=== PATIENT | male | born 1970 | race Caucasian/White ===

== ENCOUNTER 2023-09-18 07:45 | Observation (INO) | payer MEDICARE, OTHER ==
--- NOTE | 2023-09-18 08:20 | ED ---
Chest Pain HPI - General Chief Complaint: Chest Pain Stated Complaint: Chest pain Time Seen by Provider: 09/18/23 07:55 Source: patient, EMS Mode of arrival: EMS - History of Present Illness Initial Comments: 53-year-old male with past medical history of quadruple bypass with stent placement after who presents to the emergency department reporting chest pain. He is at [place]. Chest pain started around 1 AM. Describes it as a pressure sensation in his substernal region which radiates down his right arm. No associated shortness of breath. States the pain was worse when he walked, especially down a flight of stairs. He went to the medical office where they gave him a nitro and aspirin and transferred him here. Patient follows with Dr. Chappell out of [facility]. States his last stent was 3 years ago. Bypass was in 2014. Patient has active and out of 10 chest pain. - Related Data Home Medications Medication Instructions Recorded Confirmed Acetaminophen [Tylenol] 650 mg PO Q4H PRN MDD 2,600 mg 09/18/23 09/18/23 Benzocaine 20 % Gel [Orajel] 1 applic MM QID PRN 09/18/23 09/18/23 Calcium, Magnesium, Zinc, With 1 tab PO TID PRN 09/18/23 09/18/23 Vitamin D3 Chlorpheniramine Maleate 4 mg PO Q4H PRN 09/18/23 09/18/23 [Chlor-Trimeton] Clopidogrel [Plavix] 75 mg PO DAILY 09/18/23 09/18/23 Ezetimibe [Zetia] 10 mg PO DAILY 09/18/23 09/18/23 FLUoxetine HCL [PROzac] 20 mg PO DAILY 09/18/23 09/18/23 Isosorbide Mononitrate ER [Imdur] 30 mg PO DAILY 09/18/23 09/18/23 Lidocaine Viscous 2% [Xylocaine 1 applic MUCOUS MEM DIRECTED PRN 09/18/23 09/18/23 Viscous] Loperamide HCl [Imodium A-D] 4 mg PO QID PRN MDD 16 MG 09/18/23 09/18/23 Melatonin 10 mg PO HS 09/18/23 09/18/23 Metoprolol Succinate (ER) [Toprol 100 mg PO DAILY 09/18/23 09/18/23 XL] Multivitamins, Thera [Multivitamin 1 tab PO DAILY 09/18/23 09/18/23 (formulary)] Mylanta Regular Strength 30 ml PO Q4H PRN 09/18/23 09/18/23 Nitroglycerin Sl Tabs [Nitrostat] 0.4 mg SUBLINGUAL Q5M PRN 09/18/23 09/18/23 Ranolazine [Ranolazine ER] 500 mg PO Q12HR 09/18/23 09/18/23 Rosuvastatin Calcium [Crestor] 40 mg PO HS 09/18/23 09/18/23 Thiamine [Vitamin B-1] 100 mg PO DAILY 09/18/23 09/18/23 lisinopriL 40 mg PO DAILY 09/18/23 09/18/23 ondansetron HCL [Zofran] 8 mg PO Q6H PRN 09/18/23 09/18/23 traZODone HCL [Desyrel] 50 - 150 mg PO HS PRN 09/18/23 09/18/23 Allergies Allergy/AdvReac Type Severity Reaction Status Date / Time No Known Allergies Allergy Verified 09/18/23 10:56 Review of Systems ROS Statement: Those systems with pertinent positive or pertinent negative responses have been documented in the HPI. ROS Other: All systems not noted in ROS Statement are negative. Past Medical History Past Medical History: Chest Pain / Angina History of Any Multi-Drug Resistant Organisms: None Reported Past Surgical History: Coronary Bypass/CABG, Heart Catheterization With Stent Past Psychological History: Bipolar Smoking Status: Current every day smoker Past Alcohol Use History: Abuse Past Drug Use History: None Reported General Exam General appearance: alert, in no apparent distress Head exam: Present: atraumatic, normocephalic, normal inspection Eye exam: Present: normal appearance, PERRL, EOMI. Absent: scleral icterus, conjunctival injection, periorbital swelling ENT exam: Present: normal exam, mucous membranes moist Neck exam: Present: normal inspection. Absent: tenderness, meningismus, lymphadenopathy Respiratory exam: Present: normal lung sounds bilaterally. Absent: respiratory distress, wheezes, rales, rhonchi, stridor Cardiovascular Exam: Present: regular rate, normal rhythm, normal heart sounds. Absent: systolic murmur, diastolic murmur, rubs, gallop, clicks GI/Abdominal exam: Present: soft, normal bowel sounds. Absent: distended, tenderness, guarding, rebound, rigid Extremities exam: Present: normal inspection, full ROM, normal capillary refill. Absent: tenderness, pedal edema, joint swelling, calf tenderness Back exam: Present: normal inspection Neurological exam: Present: alert, oriented X3, CN II-XII intact Psychiatric exam: Present: normal affect, normal mood Skin exam: Present: warm, dry, intact, normal color. Absent: rash Course Vital Signs 09/18/23 09/18/23 09/18/23 07:56 08:00 08:36 Temperature Pulse Rate 61 59 L Pulse Rate [ 60 Supine] Respiratory 16 14 Rate Blood Pressure 126/88 132/82 Blood Pressure [Supine] O2 Sat by Pulse 100 100 Oximetry 09/18/23 09/18/23 09/18/23 09:08 09:35 13:00 Temperature 97.7 F Pulse Rate 54 L 50 L 51 L Pulse Rate [ Supine] Respiratory 16 16 16 Rate Blood Pressure 117/76 124/78 116/70 Blood Pressure [Supine] O2 Sat by Pulse 99 100 100 Oximetry 09/18/23 09/18/23 09/18/23 17:49 19:35 22:30 Temperature 98 F 97.7 F Pulse Rate 57 L 53 L Pulse Rate [ 56 L Supine] Respiratory 16 18 12 Rate Blood Pressure 119/79 110/71 Blood Pressure 105/60 [Supine] O2 Sat by Pulse 100 98 97 Oximetry 09/19/23 09/19/23 09/19/23 00:30 02:07 05:31 Temperature 97.6 F Pulse Rate 53 L 49 L 51 L Pulse Rate [ Supine] Respiratory 16 17 15 Rate Blood Pressure 106/76 111/77 111/76 Blood Pressure [Supine] O2 Sat by Pulse 98 96 96 Oximetry 09/19/23 09/19/23 09/19/23 07:00 13:00 13:17 Temperature 98.0 F Pulse Rate 62 Pulse Rate [ 58 L 78 Supine] Respiratory 16 18 Rate Blood Pressure 132/77 Blood Pressure 118/83 [Supine] O2 Sat by Pulse 97 98 Oximetry Chest Pain MDM - MDM Was pt. sent in by a medical professional or institution (, PA, DIGITAL CARTOGRAPHIC TECHNICIAN, urgent care, hospital, or longterm...) When possible be specific @ -Patient was sent in from [place] Did you speak to anyone other than the patient for history (EMS, parent, family, police, friend...)? What history was obtained from this source @ -Spoke with EMS for history Did you review nursing and triage notes (agree or disagree)? Why? @ -I reviewed and agree with nursing and triage notes Were old charts reviewed (outside hosp., previous admission, EMS record, old EKG, old radiological studies, urgent care reports/EKG's, longterm records)? Report findings @ -Reviewed paperwork from [place] Differential Diagnosis (chest pain, altered mental status, abdominal pain women, abdominal pain men, vaginal bleeding, weakness, fever, dyspnea, syncope, headache, dizziness, GI bleed, back pain, seizure, CVA, palpatations, mental health, musculoskeletal)? @ -Differential Chest Pain: Stable Angina, Unstable Angina, STEMI, NSTEMI Aortic Dissection, Pneumothorax, Musculoskeletal, Esophageal Spasm GERD, Cholecystitis, Pancreatitis, Zoster, this is not meant to be an all-inclusive list. EKG interpreted by me (3pts min.). @ -Yes and demonstrates sinus rhythm heart rate 61. NV interval 137. QRS 94. QTc of 412. No acute ST segment elevation depressions X-rays interpreted by me (1pt min.). @ -Yes and demonstrates no acute process CT interpreted by me (1pt min.). @ -None done U/S interpreted by me (1pt. min.). @ -None done What testing was considered but not performed or refused? (CT, X-rays, U/S, labs)? Why? @ -None What meds were considered but not given or refused? Why? @ -None Did you discuss the management of the patient with other professionals (professionals i.e. , PA, DIGITAL CARTOGRAPHIC TECHNICIAN, lab, RT, psych nurse, social service technician, cloth printer, teacher, media liaison officer, shelter case manager)? Give summary @ -Spoke with Dr. Benavidez and Angeli for admission Was smoking cessation discussed for >3mins.? @ -No Was critical care preformed (if so, how long)? @ -No Were there social determinants of health that impacted care today? How? (Homelessness, low income, unemployed, alcoholism, drug addiction, transportation, low edu. Level, literacy, decrease access to med. care, prison, rehab)? @ -Patient is in rehab at this time Was there de-escalation of care discussed even if they declined (Discuss DNR or withdrawal of care, Hospice)? DNR status @ -No What co-morbidities impacted this encounter? (DM, HTN, Smoking, COPD, CAD, Cancer, CVA, ARF, Chemo, Hep., AIDS, mental health diagnosis, sleep apnea, morbid obesity)? @ -Coronary disease status post CABG Was patient admitted / discharged? Hospital course, mention meds given and route, prescriptions, significant lab abnormalities, going to OR and other pertinent info. @ -Upon arrival patient was seen and evaluated in room 11. Thorough history and physical exam was performed. Patient placed on continuous pulse ox and cardiac monitoring. Twelve-lead EKG is obtained. Laboratory studies are conducted. Chest x-ray was performed. Results are discussed with patient. Due to his advanced cardiac history I did recommend admission for cardiology consultation. Patient was agreeable admitted to the hospital in stable condition Undiagnosed new problem with uncertain prognosis? @ -No Drug Therapy requiring intensive monitoring for toxicity (Heparin, Nitro, Insulin, Cardizem)? @ -No Were any procedures done? @ -No Diagnosis/symptom? @ -Acute chest pain, history of coronary artery disease Acute, or Chronic, or Acute on Chronic? @ -Acute Uncomplicated (without systemic symptoms) or Complicated (systemic symptoms)? @ -Complicated Side effects of treatment? @ -No Exacerbation, Progression, or Severe Exacerbation? @ -No Poses a threat to life or bodily function? How? (Chest pain, [place], [place], pneumonia, PE, COPD, DKA, ARF, appy, cholecystitis, CVA, Diverticulitis, Homicidal, Suicidal, threat to staff... and all critical care pts) @ -Yes this patient presents with chest pain Disposition Clinical Impression: Chest pain Disposition: ADMITTED IP TO THIS HOSP Condition: Stable Is patient prescribed a controlled substance at d/c from ED?: No Time of Disposition: 10:40 Decision to Admit Reason: Admit from EC Decision Date: 09/18/23 Decision Time: 10:40
[2023-09-18 08:30] LABS: Basophils % (A) 1 %; Eosinophils # (A) 0.1 k/uL (0-0.7); Eosinophils % (A) 1 %; HGB 13.4 gm/dL (13.0-17.5); Lymphocytes # (A) 1.8 k/uL (1.0-4.8); Lymphocytes % (A) 39 %; MCH 32.9 pg (25.0-35.0); MCHC 33.5 g/dL (31.0-37.0); MCV 98.3 fL (80.0-100.0); Monocytes # (A) 0.4 k/uL (0-1.0); Monocytes % (A) 9 %; Neutrophils # (A) 2.2 k/uL (1.3-7.7); Neutrophils % (A) 48 %; Platelet Count 213 k/uL (150-450); RBC 4.07 m/uL (4.30-5.90); RDW 13.4 % (11.5-15.5); WBC 4.7 k/uL (3.8-10.6)
[2023-09-18] MEDS: KETOROLAC 15 MG/ML 1 ML VIAL IVP STA (08:32)
--- NOTE | 2023-09-18 08:38 | XR ---
EXAMINATION TYPE: XR chest 2V DATE OF EXAM: 09/18/2023 COMPARISON: None HISTORY: Shortness of breath TECHNIQUE: Frontal and lateral views of the chest are obtained. FINDINGS: Scattered senescent parenchymal changes noted. Hyperinflation compatible with COPD. No evidence for infiltrate. No evidence for atelectasis. Heart size is stable. Sternotomy wires mediastinal clips in place. Mediastinal structures are stable and grossly unremarkable. No evidence for hilar prominence. Degenerative changes dorsal spine. IMPRESSION: 1. No evidence for acute pulmonary disease.
[2023-09-18 08:40] LABS: INR 0.9 (<1.2); Partial Thromboplastin Time 23.4 sec (22.0-30.0); Prothrombin Time 10.1 sec (10.0-12.5)
[2023-09-18 08:54] LABS: ALT 39 U/L (4-49); African American GFR (CKD) >90 (>60 ml/min/1.73 sqM); Anion Gap 4 mmol/L; Blood Urea Nitrogen 11 mg/dL (9-20); Calcium 8.4 mg/dL (8.4-10.2); Carbon Dioxide 25 mmol/L (22-30); Chloride 111 mmol/L (98-107); Glucose 85 mg/dL (74-99); Lipase 47 U/L (23-300); Non-African American GFR(CKD) >90 (>60 ml/min/1.73 sqM); Sodium 140 mmol/L (137-145)
[2023-09-18 09:04] LABS: Albumin 3.7 g/dL (3.5-5.0); Potassium 5.1 mmol/L (3.5-5.1); Total Protein 6.1 g/dL (6.3-8.2)
[2023-09-18 09:05] LABS: AST 47 U/L (17-59); Alkaline Phosphatase 27 U/L (38-126); Magnesium 2.1 mg/dL (1.6-2.3); Total Bilirubin 0.7 mg/dL (0.2-1.3)
[2023-09-18] MEDS ORDERED: NALOXONE 0.4 MG/ML 1 ML VIAL IV PRN (10:46)
[2023-09-18] MEDS: MORPHINE SULFATE 4 MG/ML SYRINGE IV PRN (11:16)
[2023-09-18] MEDS ORDERED: diphenhydrAMINE 25 MG CAP PO PRN (12:27)
[2023-09-18] MEDS ORDERED: CALCIUM CARB-VIT D 500 MG-5 MCG TAB PO PRN (12:27)
[2023-09-18] MEDS ORDERED: LIDOCAINE VISCOUS 2% 15 ML CUP MUCOUS MEM PRN (12:27)
[2023-09-18] MEDS ORDERED: ONDANSETRON 4 MG TAB PO PRN (12:27)
[2023-09-18] MEDS: RANOLAZINE 500 MG TAB.ER.12H PO SCH (20:42)
[2023-09-18] MEDS: ACETAMINOPHEN TAB 325 MG TAB PO PRN (20:42)
[2023-09-18] MEDS: MELATONIN 5 MG TABLET PO SCH (20:43)
[2023-09-18] MEDS: ATORVASTATIN 80 MG TAB PO SCH (20:43)
--- NOTE | 2023-09-18 22:17 | P.HPIM ---
History of Present Illness H&P Date: 09/18/23 Chief Complaint: Chest pain Patient is a 53-year-old male with a past medical history of coronary artery disease status post CABG in 2014 and stent placement about 5 years ago, bipolar disorder, alcohol abuse and currently everyday smoker presents to ER from [facility] facility due to complaints of chest pain. Patient states that he has been having on and off chest pain for the past couple of weeks. Last night around 1 AM she started having retrosternal chest pain and felt like someone poking with pencil. Pain radiated to the right arm and his arm felt numb and cold. Denies any associated nausea vomiting or shortness of breath. Patient felt slightly lightheaded. And states that his pain gets worse when he moves/sleeps on the side and also worsened with walking. Patient was given nitro and aspirin before transferring to ER. Chest x-ray showed no evidence for acute pulmonary disease. EKG showed sinus rhythm. Laboratory data showed WBC 4.7 hemoglobin 13.4 and platelets 213, sodium 140 potassium 5.1 chloride 111 bicarb is 25 BUN 11 creatinine 0.9. Liver enzymes are not elevated. Troponin x 2 negative and total protein 6.1 albumin 3.7 and lipase level 47 Review of Systems Constitutional: Patient denies any fever or chills . No generalized weakness or weight loss. Abdomen: Patient denied nausea vomiting and diarrhea and abdominal pain. Cardiovascular: Patient denies any chest pain or short of breath no palpita tions. Respiratory: patient denied any cough is from production. No shortness of breath Neurologic: Patient denied any numbness or tingling headache. Musculoskeletal: Patient denies any complaints of joint swelling or deformity. Skin: Negative Psychiatric: Negative Endocrine: No heat or cold intolerance. No recent weight gain. Genitourinary: No dysuria or hematuria. All other 14 point ROS negative except the above Past Medical History Past Medical History: Chest Pain / Angina History of Any Multi-Drug Resistant Organisms: None Reported Past Surgical History: Coronary Bypass/CABG, Heart Catheterization With Stent Additional Past Surgical History / Comment(s): 2014 CABG stent 5 years ago Past Anesthesia/Blood Transfusion Reactions: No Reported Reaction Date of Last Stent Placement:: 2018 Past Psychological History: Bipolar Smoking Status: Current every day smoker Past Alcohol Use History: Abuse Past Drug Use History: None Reported Medications and Allergies Home Medications Medication Instructions Recorded Confirmed Type Acetaminophen [Tylenol] 650 mg PO Q4H PRN MDD 2,600 mg 09/18/23 09/18/23 History Benzocaine 20 % Gel [Orajel] 1 applic MM QID PRN 09/18/23 09/18/23 History Calcium, Magnesium, Zinc, With 1 tab PO TID PRN 09/18/23 09/18/23 History Vitamin D3 Chlorpheniramine Maleate 4 mg PO Q4H PRN 09/18/23 09/18/23 History [Chlor-Trimeton] Clopidogrel [Plavix] 75 mg PO DAILY 09/18/23 09/18/23 History Ezetimibe [Zetia] 10 mg PO DAILY 09/18/23 09/18/23 History FLUoxetine HCL [PROzac] 20 mg PO DAILY 09/18/23 09/18/23 History Isosorbide Mononitrate ER [Imdur] 30 mg PO DAILY 09/18/23 09/18/23 History Lidocaine Viscous 2% [Xylocaine 1 applic MUCOUS MEM DIRECTED PRN 09/18/23 09/18/23 History Viscous] Loperamide HCl [Imodium A-D] 4 mg PO QID PRN MDD 16 MG 09/18/23 09/18/23 History Melatonin 10 mg PO HS 09/18/23 09/18/23 History Metoprolol Succinate (ER) [Toprol 100 mg PO DAILY 09/18/23 09/18/23 History Xl] Multivitamins, Thera [Multivitamin 1 tab PO DAILY 09/18/23 09/18/23 History (formulary)] Mylanta Regular Strength 30 ml PO Q4H PRN 09/18/23 09/18/23 History Nitroglycerin Sl Tabs [Nitrostat] 0.4 mg SUBLINGUAL Q5M PRN 09/18/23 09/18/23 History Ranolazine [Ranolazine ER] 500 mg PO Q12HR 09/18/23 09/18/23 History Rosuvastatin Calcium [Crestor] 40 mg PO HS 09/18/23 09/18/23 History Thiamine [Vitamin B-1] 100 mg PO DAILY 09/18/23 09/18/23 History lisinopriL 40 mg PO DAILY 09/18/23 09/18/23 History ondansetron HCL [Ondansetron HCl] 8 mg PO Q6H PRN 09/18/23 09/18/23 History traZODone HCL [Desyrel] 50 - 150 mg PO HS PRN 09/18/23 09/18/23 History Allergies Allergy/AdvReac Type Severity Reaction Status Date / Time No Known Allergies Allergy Verified 09/18/23 10:56 Physical Exam Vitals: Vital Signs Temp Pulse Pulse Resp BP BP Pulse Ox 09/18/23 19:35 97.7 F 57 L 18 119/79 98 09/18/23 17:49 98 F 56 L 16 105/60 100 09/18/23 13:00 51 L 16 116/70 100 09/18/23 09:35 97.7 F 50 L 16 124/78 100 09/18/23 09:08 54 L 16 117/76 99 09/18/23 08:36 59 L 14 132/82 100 09/18/23 08:00 61 16 126/88 100 09/18/23 07:56 60 Intake and Output 09/18/23 09/18/23 09/18/23 06:59 14:59 22:59 Other: # Voids 2 Weight 82.554 kg 82.554 kg PHYSICAL EXAMINATION: Patient is lying in the bed comfortably, no acute distress, awake alert and oriented.. HEENT: Normocephalic. Neck is supple. Pupils reactive. Nostrils clear. Oral cavity is moist. Neck reveals no JVD, carotid bruits, or thyromegaly. CHEST EXAMINATION: Trachea is central. Symmetrical expansion. Lung amos clear to auscultation and percussion. CARDIAC: Normal S1, S2 with no gallops. No murmurs ABDOMEN: Soft. Bowel sounds normal. No organomegaly. No abdominal bruits. Extremities: reveal no edema. No clubbing or cyanosis Neurologically awake, alert, oriented x3 with well-coordinated movements. No focal deficits noted Skin: No rash or skin lesions. Psychiatric: Coperative. Nonsuicidal Musculoskeletal: No joint swelling or deformity. Normal range of motion. Results CBC & Chem 7: 09/18/23 08:16 09/18/23 08:16 Labs: Abnormal Lab Results - Last 24 Hours (Table) 09/18/23 09/18/23 Range/Units 08:16 08:16 RBC 4.07 L (4.30-5.90) m/uL Chloride 111 H (98-107) mmol/L Alkaline Phosphatase 27 L (38-126) U/L Total Protein 6.1 L (6.3-8.2) g/dL Thrombosis Risk Factor Assmnt - DVT/VTE Prophylaxis DVT/VTE Prophylaxis: Pharmacologic Prophylaxis ordered Assessment and Plan Assessment: Atypical chest pain rule out ACS. Coronary artery disease history of CABG in 2014 and stent placement about 5 years ago Bipolar disorder DVT prophylaxis with heparin subcu Ongoing nicotine addiction Severe alcohol abuse currently at rehab Plan: Patient will be continued on daily monitoring. Continue with serial EKG and troponin x 3. Patient will be continued on home medications including Plavix, metoprolol, atorvastatin, Zetia, Imdur and also on ranolazine. Continue with thiamine and multivitamins and monitor for alcohol withdrawal symptoms. Cardiology consult for evaluation. Follow-up closely.
[2023-09-18] MEDS: HEPARIN SODIUM,PORCINE 5,000 UNIT/ML 1 ML VIAL SQ SCH (23:29)
[2023-09-19] MEDS: METOPROLOL SUCCINATE (ER) 100 MG TAB.ER.24H PO SCH (08:12)
[2023-09-19] MEDS: THIAMINE 100 MG TAB PO SCH (08:12)
[2023-09-19] MEDS: CLOPIDOGREL 75 MG TAB PO SCH (08:12)
[2023-09-19] MEDS: diphenhydrAMINE 25 MG CAP PO PRN (08:13)
[2023-09-19] MEDS: FLUoxetine HCL 20 MG CAP PO SCH (08:13)
[2023-09-19] MEDS: MULTIVITAMINS, THERA 1 EACH TAB PO SCH (08:13)
[2023-09-19] MEDS: EZETIMIBE 10 MG TAB PO SCH (10:11)
[2023-09-19] MEDS: lisinopriL 20 MG TAB PO SCH (10:11)
[2023-09-19] MEDS: ISOSORBIDE MONONITRATE ER 30 MG TAB.ER.24H PO SCH (10:11)
--- NOTE | 2023-09-19 10:12 | P.CRDCN ---
History of Present Illness History of present illness: HISTORY OF PRESENT ILLNESS: This is a 53-year-old male with a past medical history significant for coronary artery disease with previous CABG and stenting, hypertension, hyperlipidemia, a lcohol abuse, and nicotine dependence. Patient follows outpatient with Dr. Ferrell. We have been asked to see the patient in consultation for chest pain. Patient examined at the bedside. Patient states he is currently at [facility] for alcohol abuse. He states that yesterday he had an episode of chest discomfort which is chronic for him and is not worse than his baseline pain that he gets. He states that he went to the staff to try to get his medications and when he mentioned that he was having chest pain they called EMS and brought him to the hospital for further evaluation. The patient states he has chest pain every single day and the pain is not worse than normal. He believes that the staff at [facility] overreacted when he mentioned he was having chest pain. He does state that he had a cardiac catheterization performed last year and was told that he would need to have another stent placed. The patient is currently resting in bed comfortably and does not appear to be in any distress. Vital signs are stable. DIAGNOSTICS: - EKG reveals sinus mechanism with no signs of acute ischemia. - Chest xray negative for acute process. - Laboratory data: WBC 4.7. Hemoglobin 13.4. Platelet count 213. Sodium 140. Potassium 5.1. BUN 11. Creatinine 0.90. Magnesium 2.1. Troponin negative x 3 - Current home cardiac medications include Plavix 75 mg daily, Zetia 10 mg daily, Imdur 30 mg daily, metoprolol succinate 100 mg daily, lisinopril 40 mg daily, Ranexa 500 mg twice a day, rosuvastatin 40 mg at night. REVIEW OF SYSTEMS: At the time of my exam: CONSTITUTIONAL: Denies fever or chills. HEENT: Denies blurred vision, vision changes, or eye pain. Denies hemoptysis CARDIOVASCULAR: Denies chest pain. Denies orthopnea. Denies PND. Denies palpitations RESPIRATORY: Denies shortness of breath. GASTROINTESTINAL: Denies abdominal pain. Denies nausea or vomiting. HEMATOLOGIC: Denies bleeding disorders. GENITOURINARY: Denies any blood in urine. SKIN: Denies pruitis. Denies rash. PHYSICAL EXAM: VITAL SIGNS: Reviewed. GENERAL: Well-developed in no acute distress. HEENT: Head is normocephalic. Pupils are equal, round. Sclerae anicteric. Mucous membranes of the mouth are moist. Neck supple. No JVD or thyromegaly LUNGS: Respirations even and unlabored. Lungs essentially clear to auscultation bilaterally. HEART: Regular rate and rhythm. S1 and S2 heard. ABDOMEN: Soft. Nondistended. Nontender. EXTREMITIES: Normal range of motion. No clubbing or cyanosis. Peripheral pulses intact. No lower extremity edema NEUROLOGIC: Awake and alert. Oriented x 3. ASSESSMENT: Chest pain, chronic per patient, troponin negative x 3 Coronary artery disease with previous CABG and stenting Hypertension Hyperlipidemia Alcohol abuse Nicotine dependence PLAN: Attempt to obtain records from cardiac catheterization performed at [facility] An acute coronary event has been ruled out Resume home cardiac medications Repeat EKG. If no ischemic changes, the patient may be discharged back to [facility] Patient to follow-up postdischarge with his primary stunt man, Dr. Ferrell Nurse practitioner note has been reviewed by physician. Signing provider agrees with the documented findings, assessment, and plan of care documented by THEOLOGY TEACHER as a scribe. Past Medical History Past Medical History: Chest Pain / Angina History of Any Multi-Drug Resistant Organisms: None Reported Past Surgical History: Coronary Bypass/CABG, Heart Catheterization With Stent Additional Past Surgical History / Comment(s): 2014 CABG stent 5 years ago Past Anesthesia/Blood Transfusion Reactions: No Reported Reaction Date of Last Stent Placement:: 2018 Past Psychological History: Bipolar Smoking Status: Current every day smoker Past Alcohol Use History: Abuse Past Drug Use History: None Reported Medications and Allergies Home Medications Medication Instructions Recorded Confirmed Type Acetaminophen [Tylenol] 650 mg PO Q4H PRN MDD 2,600 mg 09/18/23 09/18/23 History Benzocaine 20 % Gel [Orajel] 1 applic MM QID PRN 09/18/23 09/18/23 History Calcium, Magnesium, Zinc, With 1 tab PO TID PRN 09/18/23 09/18/23 History Vitamin D3 Chlorpheniramine Maleate 4 mg PO Q4H PRN 09/18/23 09/18/23 History [Chlor-Trimeton] Clopidogrel [Plavix] 75 mg PO DAILY 09/18/23 09/18/23 History Ezetimibe [Zetia] 10 mg PO DAILY 09/18/23 09/18/23 History FLUoxetine HCL [PROzac] 20 mg PO DAILY 09/18/23 09/18/23 History Isosorbide Mononitrate ER [Imdur] 30 mg PO DAILY 09/18/23 09/18/23 History Lidocaine Viscous 2% [Xylocaine 1 applic MUCOUS MEM DIRECTED PRN 09/18/23 09/18/23 History Viscous] Loperamide HCl [Imodium A-D] 4 mg PO QID PRN MDD 16 MG 09/18/23 09/18/23 History Melatonin 10 mg PO HS 09/18/23 09/18/23 History Metoprolol Succinate (ER) [Toprol 100 mg PO DAILY 09/18/23 09/18/23 History Xl] Multivitamins, Thera [Multivitamin 1 tab PO DAILY 09/18/23 09/18/23 History (formulary)] Mylanta Regular Strength 30 ml PO Q4H PRN 09/18/23 09/18/23 History Nitroglycerin Sl Tabs [Nitrostat] 0.4 mg SUBLINGUAL Q5M PRN 09/18/23 09/18/23 History Ranolazine [Ranolazine ER] 500 mg PO Q12HR 09/18/23 09/18/23 History Rosuvastatin Calcium [Crestor] 40 mg PO HS 09/18/23 09/18/23 History Thiamine [Vitamin B-1] 100 mg PO DAILY 09/18/23 09/18/23 History lisinopriL 40 mg PO DAILY 09/18/23 09/18/23 History ondansetron HCL [Ondansetron HCl] 8 mg PO Q6H PRN 09/18/23 09/18/23 History traZODone HCL [Desyrel] 50 - 150 mg PO HS PRN 09/18/23 09/18/23 History Allergies Allergy/AdvReac Type Severity Reaction Status Date / Time No Known Allergies Allergy Verified 09/18/23 10:56 Physical Exam Vitals: Vital Signs Temp Pulse Pulse Resp BP BP Pulse Ox 09/19/23 07:00 58 L 16 118/83 97 09/19/23 05:31 97.6 F 51 L 15 111/76 96 09/19/23 02:07 49 L 17 111/77 96 09/19/23 00:30 53 L 16 106/76 98 09/18/23 22:30 53 L 12 110/71 97 09/18/23 19:35 97.7 F 57 L 18 119/79 98 09/18/23 17:49 98 F 56 L 16 105/60 100 09/18/23 13:00 51 L 16 116/70 100 09/18/23 09:35 97.7 F 50 L 16 124/78 100 09/18/23 09:08 54 L 16 117/76 99 Intake and Output 09/18/23 09/19/23 09/19/23 22:59 06:59 14:59 Output Total 900 Balance -900 Output: Urine 900 Other: # Voids 2 Weight 82.554 kg Results 09/18/23 08:16 09/18/23 08:16 Cardiac Enzymes 09/18/23 09/18/23 09/18/23 Range/Units 08:16 09:33 11:50 AST 47 (17-59) U/L Troponin I <0.012 <0.012 (0.000-0.034) ng/mL 09/18/23 Range/Units 15:11 AST (17-59) U/L Troponin I <0.012 (0.000-0.034) ng/mL Comprehensive Metabolic Panel 09/18/23 Range/Units 08:16 Sodium 140 (137-145) mmol/L Potassium 5.1 (3.5-5.1) mmol/L Chloride 111 H (98-107) mmol/L Carbon Dioxide 25 (22-30) mmol/L BUN 11 (9-20) mg/dL Creatinine 0.90 (0.66-1.25) mg/dL Glucose 85 (74-99) mg/dL Calcium 8.4 (8.4-10.2) mg/dL AST 47 (17-59) U/L ALT 39 (4-49) U/L Alkaline Phosphatase 27 L (38-126) U/L Total Protein 6.1 L (6.3-8.2) g/dL Albumin 3.7 (3.5-5.0) g/dL Current Medications Generic Name Dose Route Start Last Admin Trade Name Freq PRN Reason Stop Dose Admin Acetaminophen 650 mg 09/18/23 12:27 09/18/23 20:42 Acetaminophen Tab 325 Mg Tab PO 650 mg Q4H PRN Administration Pain or Fever > 100.5 Atorvastatin Calcium 80 mg 09/18/23 21:00 09/18/23 20:43 Atorvastatin 80 Mg Tab PO 80 mg HS [facility] Administration Calcium Carbonate 1 each 09/18/23 12:27 Calcium Carb-Vit D 500 Mg-5 Mcg Tab PO TID PRN WITHDRAWL SYMPTOMS Clopidogrel Bisulfate 75 mg 09/19/23 09:00 09/19/23 08:12 Clopidogrel 75 Mg Tab PO 75 mg DAILY [facility] Administration Diphenhydramine HCl 25 mg 09/18/23 12:42 09/19/23 08:13 Diphenhydramine 25 Mg Cap PO 25 mg Q4H PRN Administration ALLERGY/WITHDRAWL SYMPTOMS Ezetimibe 10 mg 09/19/23 09:00 Ezetimibe 10 Mg Tab PO DAILY [facility] Fluoxetine HCl 20 mg 09/19/23 09:00 09/19/23 08:13 Fluoxetine Hcl 20 Mg Cap PO 20 mg DAILY [facility]I Administration Heparin Sodium (Porcine) 5,000 unit 09/19/23 00:00 09/18/23 23:29 Heparin Sodium,Porcine 5,000 Unit/Ml 1 Ml Vial SQ 5,000 unit Q8HR [facility]I Administration Isosorbide Mononitrate 30 mg 09/19/23 09:00 Isosorbide Mononitrate Er 30 Mg Tab.Er.24h PO DAILY [facility] Lidocaine HCl 15 ml 09/18/23 12:27 Lidocaine Viscous 2% 15 Ml Cup MUCOUS MEM TID PRN MOUTH PAIN Lisinopril 40 mg 09/19/23 09:00 Lisinopril 20 Mg Tab PO DAILY [facility] Melatonin 10 mg 09/18/23 21:00 09/18/23 20:43 Melatonin 5 Mg Tablet PO 10 mg HS [facility]I Administration Metoprolol Succinate 100 mg 09/19/23 09:00 09/19/23 08:12 Metoprolol Succinate (Er) 100 Mg Tab.Er.24h PO 100 mg DAILY [facility] Administration Morphine Sulfate 4 mg 09/18/23 10:46 09/19/23 08:10 Morphine Sulfate 4 Mg/Ml Syringe IV 4 mg Q4HR PRN Administration Severe Pain (Scale 7 to 10) Multivitamins 1 each 09/19/23 09:00 09/19/23 08:13 Multivitamins, Thera 1 Each Tab PO 1 each DAILY [facility] Administration Naloxone HCl 0.2 mg 09/18/23 10:46 Naloxone 0.4 Mg/Ml 1 Ml Vial IV Q2M PRN Opioid Reversal Ondansetron HCl 8 mg 09/18/23 12:27 Ondansetron 4 Mg Tab PO Q6H PRN Nausea Ranolazine 500 mg 09/18/23 21:00 09/19/23 08:12 Ranolazine 500 Mg Tab.Er.12h PO 500 mg Q12HR [facility] Administration Thiamine HCl 100 mg 09/19/23 09:00 09/19/23 08:12 Thiamine 100 Mg Tab PO 100 mg DAILY [facility] Administration Intake and Output 09/18/23 09/19/23 09/19/23 22:59 06:59 14:59 Output Total 900 Balance -900 Output: Urine 900 Other: # Voids 2 Weight 82.554 kg 09/18/23 08:16 09/18/23 08:16
[2023-09-19 11:47] LABS: Basophils # (A) 0.05 X 10*3/uL (0.00-0.10); Basophils % (A) 1.2 %; Eosinophils # (A) 0.05 X 10*3/uL (0.04-0.35); Eosinophils % (A) 1.2 %; HCT 40.8 % (39.6-50.0); HGB 13.7 g/dL (13.0-17.0); Lymphocytes # (A) 1.65 X 10*3/uL (0.90-5.00); Lymphocytes % (A) 40.5 %; MCH 32.5 pg (27.0-32.0); MCHC 33.6 g/dL (32.0-37.0); MCV 96.9 FL (80.0-97.0); Mean Platelet Volume 9.4 FL (9.5-12.2); Monocytes # (A) 0.34 X 10*3/uL (0.20-1.00); Monocytes % (A) 8.4 %; NRBC Per 100 WBC 0 X 10*3/uL (0.00-0.01); Neutrophils # (A) 1.97 X 10*3/uL (1.80-7.70); Neutrophils % (A) 48.5 %; Platelet Count 211 X 10*3/uL (140-440); RBC 4.21 X 10*6/uL (4.40-5.60); RDW 12.7 % (11.5-14.5); WBC 4.07 X 10*3/uL (4.50-10.00)
[2023-09-19 11:58] LABS: Blood Urea Nitrogen 11.9 mg/dL (9.0-27.0); C Reactive Protein <0.30 mg/dL (0.00-0.80); Calcium 8.8 mg/dL (8.7-10.3); Chloride 109 mmol/L (96-109); Glucose 95 mg/dL (70-110); Potassium 4.9 mmol/L (3.5-5.5); Sodium 143 mmol/L (135-145)
[2023-09-19 13:30] VITALS: BP 132/77; PULSE 78; RESP 18; TEMP 98
--- NOTE | 2023-09-22 12:09 | P.DS ---
Providers Date of admission: 09/18/23 10:46 Expected date of discharge: 09/19/23 Attending physician: Philip Benavidez Consults: 09/18/23 10:46 Consult Physician Urgent Consulting Provider: [facility] Consult Reason/Comments: acute chest pain, hx ascad Do you want consulting provider notified?: Yes Primary care physician: Stated None Hospital Course: Final diagnosis Atypical chest pain ruled out ACS Coronary artery disease history of CABG in 2015 and stent placement about 5 years ago Bipolar disorder DVT prophylaxis Ongoing nicotine addiction Severe alcohol abuse currently at rehab GI prophylaxis Full code Discharge disposition Patient is being discharged in a stable condition with guarded prognosis to [facility] inpatient rehab. Patient will follow-up with his primary care provider where he lives in the outpatient setting upon discharge. Patient is to continue with current medications and outpatient follow-up with his service order clerk as scheduled. Total time taken is greater than 35 minutes. Hospital course This is a 53 -year-old male who was recently admitted with chest pain, ruled out ACS being closely monitored. Patient evaluated by cardiology and has been cleared for return to inpatient rehab and instructed to follow-up with his service order clerk once discharged from [facility]. Patient reports he had intermittent chest pain while walking up multiple flights of steps and has subsided and denies any further chest pain. Patient would like to return to inpatient alcohol rehab. Please refer to cardiology notes for further HPI. Cur rently no reports of chest pain, shortness of breath, or palpitations. Patient is afebrile. No reports of nausea or vomiting and patient is tolerating diet. Patient will be discharged to [facility] today. Physical exam: Gen: This is a 53-year-old male who is awake, alert and oriented x 3, well- developed, well-nourished, elderly appearing, thin built HEENT: Head is atraumatic, normocephalic. Pupils equal, round. Sclerae is anicteric. NECK: Supple. No JVD. No lymphadenopathy. No thyromegaly. LUNGS: Clear to auscultation. No wheezes or rhonchi. No intercostal retractions. HEART: S1, S2 are muffled ABDOMEN: Soft. Thin. Bowel sounds are present. No masses. No tenderness. EXTREMITIES: No pedal edema. No calf tenderness. NEUROLOGICAL: Patient is awake, alert and oriented x3. Cranial nerves 2 through 12 are grossly intact. Please refer to medication reconciliation sheet for a list of medications. The impression and plan of care has been dictated by Amy Terrell, Nurse Practitioner as directed. Dr. Reema MD I have performed a history and examination and MDM of this patient, discussed the same with the dictator, and agree with the dictator's assessment and plan as written ,documented as a scribe. Based on total visit time, I have performed more than 50% of the visit. Patient Condition at Discharge: Stable Plan - Discharge Summary Discharge Rx Participant: Yes New Discharge Prescriptions: Continue Calcium, Magnesium, Zinc, With Vitamin D3 1 tab PO TID PRN PRN Reason: WITHDRAWL SYMPTOMS Metoprolol Succinate (ER) [Toprol XL] 100 mg PO DAILY FLUoxetine HCL [PROzac] 20 mg PO DAILY Loperamide HCl [Imodium A-D] 4 mg PO QID PRN MDD 16 MG PRN Reason: Diarrhea Acetaminophen [Tylenol] 650 mg PO Q4H PRN MDD 2,600 mg PRN Reason: Pain Or Fever > 100.5 Thiamine [Vitamin B-1] 100 mg PO DAILY Mylanta Regular Strength 30 ml PO Q4H PRN PRN Reason: Gi Upset ondansetron HCL [Zofran] 8 mg PO Q6H PRN PRN Reason: Nausea Chlorpheniramine Maleate [Chlor-Trimeton] 4 mg PO Q4H PRN PRN Reason: ALLERGY/WITHDRAWL SYMPTOMS Rosuvastatin Calcium [Crestor] 40 mg PO HS Ranolazine [Ranolazine ER] 500 mg PO Q12HR Nitroglycerin Sl Tabs [Nitrostat] 0.4 mg SUBLINGUAL Q5M PRN PRN Reason: Chest Pain lisinopriL 40 mg PO DAILY Isosorbide Mononitrate ER [Imdur] 30 mg PO DAILY Ezetimibe [Zetia] 10 mg PO DAILY Clopidogrel [Plavix] 75 mg PO DAILY traZODone HCL [Desyrel] 50 - 150 mg PO HS PRN PRN Reason: SLEEP Benzocaine 20 % Gel [Orajel] 1 applic MM QID PRN PRN Reason: GUM/TOOTH PAIN Multivitamins, Thera [Multivitamin (formulary)] 1 tab PO DAILY Melatonin 10 mg PO HS Lidocaine Viscous 2% [Xylocaine Viscous] 1 applic MUCOUS MEM DIRECTED PRN PRN Reason: mouth pain Discharge Medication List Acetaminophen [Tylenol] 650 mg PO Q4H PRN MDD 2,600 mg 09/18/23 [History] Benzocaine 20 % Gel [Orajel] 1 applic MM QID PRN 09/18/23 [History] Calcium, Magnesium, Zinc, With Vitamin D3 1 tab PO TID PRN 09/18/23 [History] Chlorpheniramine Maleate [Chlor-Trimeton] 4 mg PO Q4H PRN 09/18/23 [History] Clopidogrel [Plavix] 75 mg PO DAILY 09/18/23 [History] Ezetimibe [Zetia] 10 mg PO DAILY 09/18/23 [History] FLUoxetine HCL [PROzac] 20 mg PO DAILY 09/18/23 [History] Isosorbide Mononitrate ER [Imdur] 30 mg PO DAILY 09/18/23 [History] Lidocaine Viscous 2% [Xylocaine Viscous] 1 applic MUCOUS MEM DIRECTED PRN 09/18/23 [History] Loperamide HCl [Imodium A-D] 4 mg PO QID PRN MDD 16 MG 09/18/23 [History] Melatonin 10 mg PO HS 09/18/23 [History] Metoprolol Succinate (ER) [Toprol XL] 100 mg PO DAILY 09/18/23 [History] Multivitamins, Thera [Multivitamin (formulary)] 1 tab PO DAILY 09/18/23 [History] Mylanta Regular Strength 30 ml PO Q4H PRN 09/18/23 [History] Nitroglycerin Sl Tabs [Nitrostat] 0.4 mg SUBLINGUAL Q5M PRN 09/18/23 [History] Ranolazine [Ranolazine ER] 500 mg PO Q12HR 09/18/23 [History] Rosuvastatin Calcium [Crestor] 40 mg PO HS 09/18/23 [History] Thiamine [Vitamin B-1] 100 mg PO DAILY 09/18/23 [History] lisinopriL 40 mg PO DAILY 09/18/23 [History] ondansetron HCL [Zofran] 8 mg PO Q6H PRN 09/18/23 [History] traZODone HCL [Desyrel] 50 - 150 mg PO HS PRN 09/18/23 [History] Follow up Appointment(s)/Referral(s): None,Stated [Primary Care Provider] - 1-2 days Patient Instructions/Handouts: Angina (DC) Activity/Diet/Wound Care/Special Instructions: Patient is returning to [facility] Activity as tolerated Continue taking cardiac medications Follow-up with Dr. Olsen cardiology outpatient on discharge Discharge Disposition: OTHER INSTITUTION NOT DEFINED
== END 2023-09-19 14:29 | disposition other institution (70) ==
LOC: EC 07:45 → 6NMEDSUR 10:46
PROVIDERS: ADMIT Internal Medicine; ATTEND Internal Medicine
DX: R07.89 Other chest pain (principal); F31.9 Bipolar disorder, unspecified; I25.10 Atherosclerotic heart disease of native coronary artery without angina pectoris; I10 Essential (primary) hypertension; E78.5 Hyperlipidemia, unspecified; F10.10 Alcohol abuse, uncomplicated; F17.200 Nicotine dependence, unspecified, uncomplicated; Z95.5 Presence of coronary angioplasty implant and graft; Z79.02 Long term (current) use of antithrombotics/antiplatelets; Z79.899 Other long term (current) drug therapy
CPT/HCPCS: 96376; 96372; 96374; 96375; 99285; 36415; 93005 ×2; 80053; 80048; 83690; 83735; 84484; 85025 ×2; 85610; 85730; 86140; 71046; G0378 ×2; J2270 ×2; J1644; J1885